=== PATIENT | male | born 1945 | race Caucasian/White ===

== ENCOUNTER 2018-06-17 13:52 | Emergency (ER) | payer OTHER ==
--- NOTE | 2018-06-17 14:56 | ER Report ---
History and Physical Time Seen By MD: 14:56 Hx. of Stated Complaint: left lower quadrant pain HPI/ROS CHIEF COMPLAINT: LLQ abdominal pain HISTORY OF PRESENT ILLNESS: The patient is a 72-year-old male with past medical history for high blood pressure and gout who states that approximately 4-5 days ago began with a bloating sensation to his abdomen with some mild discomfort and over the past 4-5 days the pain is migrated to the left lower quadrant it waxes and wanes in intensity from 5 out of 10-9 out of 10 and is said most severe when someone is pushing on it. He nausea vomiting, denies any fevers or chills. Denies similar episodes in the past. He denies any blood or mucus in his stool his last bowel movement was today and was reported to be "normal". He denies dysuria. Denies any blood in his urine. He denies chest pain or shortness of breath. REVIEW OF SYSTEMS: Constitutional: No fever, no chills. Eyes: No discharge. ENT: No sore throat. Cardiovascular: No chest pain, no palpitations. Respiratory: No cough, no shortness of breath. Gastrointestinal: Left lower quadrant abdominal pain, no nausea vomiting no diarrhea no constipation Genitourinary: No hematuria. Musculoskeletal: No back pain. Skin: No rashes. Neurological: No headache. Allergies: Coded Allergies: No Known Drug Allergies (Unverified , 06/17/18) Home Meds Active Scripts Hydrocodone Bit/Acetaminophen (HYDROCODON-ACETAMINOPHEN 5-325) 1 Each Tablet, 1 EACH PO Q4H PRN for PAIN, #12 TAB 0 Refills TAKE ONE TABLET BY MOUTH EVERY 4-6 HOURS NEEDED FOR PAIN Prov:TAMIKO LACY MD 06/17/18 Metronidazole (FLAGYL) 500 Mg Tablet, 500 MG PO BID for 10 Days, #20 TAB 0 Refills Prov:TAMIKO LACY MD 06/17/18 Ciprofloxacin Hcl 500 Mg Tab (CIPRO 500 MG TAB) 500 Mg Tablet, 500 MG PO BID, #20 TAB 0 Refills Prov:TAMIKO LACY MD 06/17/18 Reported Medications Indomethacin (INDOCIN) 25 Mg/5 Ml Oral.susp, 25 MG PO 06/17/18 Tamsulosin Hcl (FLOMAX) 0.4 Mg Cap.er.24h, 0.4 MG PO, CAP 06/17/18 Sildenafil Citrate (SILDENAFIL) 20 Mg Tablet, 20 MG PO TID 06/17/18 Hydrochlorothiazide (HYDROCHLOROTHIAZIDE) 25 Mg Tablet, 1 TAB PO QDAY, TAB 06/17/18 Lisinopril (LISINOPRIL) 40 Mg Tablet, 40 MG PO QDAY, TAB 06/17/18 Past Medical/Surgical History Hypertension, gout Constitutional Vital Sign - Last 24 Hours 06/17/18 06/17/18 06/17/18 06/17/18 14:00 14:06 14:30 15:00 Temp 99.6 Pulse 63 104 67 95 Resp 16 B/P (MAP) 103/59 (74) 169/103 102/62 (75) 170/110 (130) Pulse Ox 95 91 94 91 O2 Delivery Room Air 06/17/18 06/17/18 06/17/18 06/17/18 15:30 16:00 16:30 17:30 Pulse 82 89 90 B/P (MAP) 173/102 (125) 164/89 (114) 159/90 (113) 176/107 (130) Pulse Ox 93 92 93 92 Physical Exam General Appearance: The patient is alert, has no immediate need for airway protection and no signs of toxicity. Eyes: Pupils equal and round no pallor or injection. ENT, Mouth: Mucous membranes are moist. Respiratory: There are no retractions, lungs are clear to auscultation. Cardiovascular: Regular rate and rhythm. Gastrointestinal: Abdomen is somewhat protuberant with left lower quadrant pain to palpation Neurological: Awake and alert Skin: Warm and dry, no rashes. Musculoskeletal: Neck is supple non tender. Extremities are nontender, nonswollen and have full range of motion. Medical Decision Making Data Points Result Diagram: 06/17/18 1409 06/17/18 1510 Laboratory Hematology Test 06/17/18 14:09 06/17/18 14:51 06/17/18 15:10 Red Blood Count 5.40 M/uL (4.00-5.60) Mean Corpuscular Volume 85.5 fL (80.0-96.0) Mean Corpuscular Hemoglobin 29.6 pg (26.0-33.0) Mean Corpuscular Hemoglobin Concent 34.6 g/dL (32.0-36.0) Red Cell Distribution Width 14.0 % (11.5-14.5) Mean Platelet Volume 7.3 fL (7.2-11.1) Neutrophils (%) (Auto) 62.0 % (39.4-72.5) Lymphocytes (%) (Auto) 24.7 % (17.6-49.6) Monocytes (%) (Auto) 8.7 % (4.1-12.4) Eosinophils (%) (Auto) 4.0 % (0.4-6.7) Basophils (%) (Auto) 0.6 % (0.3-1.4) Nucleated RBC Relative Count (auto) 0.0 /100WBC Neutrophils # (Auto) 4.0 K/uL (2.0-7.4) Lymphocytes # (Auto) 1.6 K/uL (1.3-3.6) Monocytes # (Auto) 0.6 K/uL (0.3-1.0) Eosinophils # (Auto) 0.3 K/uL (0.0-0.5) Basophils # (Auto) 0.0 K/uL (0.0-0.1) Nucleated RBC Absolute Count (auto) 0.00 K/uL Urine Color Yellow Urine Clarity Clear Urine pH 6.0 pH (4.8-9.5) Urine Specific Floral 1.010 Urine Protein Negative mg/dL (NEGATIVE) Urine Glucose (UA) Negative mg/dL (NEGATIVE) Urine Ketones Negative mg/dL (NEGATIVE) Urine Blood Negative (NEGATIVE) Urine Nitrite Negative (NEGATIVE) Urine Bilirubin Negative (NEGATIVE) Urine Urobilinogen Negative mg/dL (0.2-1.9) Urine Leukocyte Esterase Negative (NEGATIVE) Urine RBC <1 /HPF (0-2/HPF) Urine WBC <1 /HPF (0-5/HPF) Urine Squamous Epithelial Cells Few /LPF (</=FEW) Urine Bacteria Negative /HPF (NONE-FEW) Urine Mucus None /HPF (NONE-FEW) Sodium Level 139 mmol/L (137-145) Potassium Level 3.8 mmol/L (3.5-5.0) Chloride Level 103 mmol/L (98-107) Carbon Dioxide Level 26 mmol/L (22-30) Blood Urea Nitrogen 13 mg/dl (9-21) Creatinine 1.00 mg/dl (0.66-1.25) Glomerular Filtration Rate Calc > 60.0 Random Glucose 100 mg/dl (75-110) Calcium Level 9.5 mg/dl (8.4-10.2) Total Bilirubin 0.4 mg/dl (0.2-1.3) Aspartate Amino Transf (AST/SGOT) 28 U/L (0-35) Alanine Aminotransferase (ALT/SGPT) 43 U/L (0-56) Alkaline Phosphatase 86 U/L (0-126) Total Protein 7.8 g/dl (6.3-8.2) Albumin 4.5 g/dl (3.5-5.0) Lipase 95 U/L (23-300) Chemistry Test 06/17/18 14:09 06/17/18 14:51 06/17/18 15:10 White Blood Count 6.4 k/uL (4.5-11.0) Red Blood Count 5.40 M/uL (4.00-5.60) Hemoglobin 16.0 g/dL (14.0-18.0) Hematocrit 46.1 % (42.0-52.0) Mean Corpuscular Volume 85.5 fL (80.0-96.0) Mean Corpuscular Hemoglobin 29.6 pg (26.0-33.0) Mean Corpuscular Hemoglobin Concent 34.6 g/dL (32.0-36.0) Red Cell Distribution Width 14.0 % (11.5-14.5) Platelet Count 296 K/uL (150-450) Mean Platelet Volume 7.3 fL (7.2-11.1) Neutrophils (%) (Auto) 62.0 % (39.4-72.5) Lymphocytes (%) (Auto) 24.7 % (17.6-49.6) Monocytes (%) (Auto) 8.7 % (4.1-12.4) Eosinophils (%) (Auto) 4.0 % (0.4-6.7) Basophils (%) (Auto) 0.6 % (0.3-1.4) Nucleated RBC Relative Count (auto) 0.0 /100WBC Neutrophils # (Auto) 4.0 K/uL (2.0-7.4) Lymphocytes # (Auto) 1.6 K/uL (1.3-3.6) Monocytes # (Auto) 0.6 K/uL (0.3-1.0) Eosinophils # (Auto) 0.3 K/uL (0.0-0.5) Basophils # (Auto) 0.0 K/uL (0.0-0.1) Nucleated RBC Absolute Count (auto) 0.00 K/uL Urine Color Yellow Urine Clarity Clear Urine pH 6.0 pH (4.8-9.5) Urine Specific Floral 1.010 Urine Protein Negative mg/dL (NEGATIVE) Urine Glucose (UA) Negative mg/dL (NEGATIVE) Urine Ketones Negative mg/dL (NEGATIVE) Urine Blood Negative (NEGATIVE) Urine Nitrite Negative (NEGATIVE) Urine Bilirubin Negative (NEGATIVE) Urine Urobilinogen Negative mg/dL (0.2-1.9) Urine Leukocyte Esterase Negative (NEGATIVE) Urine RBC <1 /HPF (0-2/HPF) Urine WBC <1 /HPF (0-5/HPF) Urine Squamous Epithelial Cells Few /LPF (</=FEW) Urine Bacteria Negative /HPF (NONE-FEW) Urine Mucus None /HPF (NONE-FEW) Glomerular Filtration Rate Calc > 60.0 Calcium Level 9.5 mg/dl (8.4-10.2) Total Bilirubin 0.4 mg/dl (0.2-1.3) Aspartate Amino Transf (AST/SGOT) 28 U/L (0-35) Alanine Aminotransferase (ALT/SGPT) 43 U/L (0-56) Alkaline Phosphatase 86 U/L (0-126) Total Protein 7.8 g/dl (6.3-8.2) Albumin 4.5 g/dl (3.5-5.0) Lipase 95 U/L (23-300) Urinalysis Test 06/17/18 14:51 Urine Color Yellow Urine Clarity Clear Urine pH 6.0 pH (4.8-9.5) Urine Specific Floral 1.010 Urine Protein Negative mg/dL (NEGATIVE) Urine Glucose (UA) Negative mg/dL (NEGATIVE) Urine Ketones Negative mg/dL (NEGATIVE) Urine Blood Negative (NEGATIVE) Urine Nitrite Negative (NEGATIVE) Urine Bilirubin Negative (NEGATIVE) Urine Urobilinogen Negative mg/dL (0.2-1.9) Urine Leukocyte Esterase Negative (NEGATIVE) Urine RBC <1 /HPF (0-2/HPF) Urine WBC <1 /HPF (0-5/HPF) Urine Squamous Epithelial Cells Few /LPF (</=FEW) Urine Bacteria Negative /HPF (NONE-FEW) Urine Mucus None /HPF (NONE-FEW) EKG/Imaging Imaging FACILITY: [facility] [place] PATIENT NAME: Bakari Case : 1945 MR: [id number] V: [id number] EXAM DATE: ORDERING PHYSICIAN: TAMIKO LACY TECHNOLOGIST: Location: [facility] [place] Patient: Bakari Case : 1945 Visit/Account:[id number] Date of Sevice: 06/17/2018 CT ABDOMEN PELVIS W/ CON HISTORY: LLQ pain TECHNIQUE: Following administration of IV contrast contiguous axial images acquired through the abdomen/pelvis. Coronal and sagittal reformatting also performed.Dose Lowering Technique One of the following dose optimization techniques was utilized in the perform ance of this exam: Automated exposure control; adjustment of the mA and/or kV according to the patient's size; or use of an iterative reconstruction technique. Specific details can be referenced in the facility's radiology CT exam operational policy. CONTRAST: 75 mL Isovue-370 COMPARISON: None. FINDINGS: Visualized lung bases: There is a 5 mm noncalcified nodule posterior aspect of the left lower lobe best seen on image 11 of series 3 Hepatobiliary: There appears to been partial resection of the left lobe of the liver Spleen: Negative. Adrenals: There is a 9 x 5 mm right adrenal nodule Pancreas: Negative. Kidneys ureters or bladder: Urinary bladder is mildly distended. There is mild thickening of the bladder wall. Genitalia: Prostate gland is moderately enlarged impinging upon the floor the bladder GI: There is mild diverticulosis of the left-sided colon there are minimal infiltrative changes seen in the pericolonic fat adjacent to proximal sigmoid colon . This could represent very subtle diverticulitis given the clinical history of left lower quadrant pain Vessels/spaces/nodes: Negative. Bones/soft tissues: There is a small umbilical hernia containing fat. There are spondylotic changes in the thoracolumbar spine. Additional findings: None pertinent. IMPRESSION: There is a 5 mm noncalcified nodule posterior aspect left lower lobe [employer]LE[employer] SOC[employer] FOLLOW-UP GUIDELINES FOR NEWLY DETECTED INCIDENTAL NODULES IN PERSONS 35 YEARS OF AGE OR OLDER. *These recommendations do NOT apply to lung cancer screening, patients with immunosuppression or patients with a known primary malignancy. SOLITARY SOLID NODULE If nodule size is < 6 mm: * Low risk patient ? No routine follow-up. * High risk patient ? Optional CT at 12 months. If nodule size is 6-8 mm: * Low risk patient ? CT at 6-12 months, then consider CT at 18-24 months if no change. * High risk patient ? CT at 6-12 months, then CT at 18-24 months if no change. If nodule size is > 8 mm: * Low risk patient ? Consider CT at 3, 9 and 24 months (if no change), PET/CT, tissue sampling or a combination thereof. * High risk patient ? Consider CT at 3, 9 and 24 months (if no change), PET/CT, tissue sampling, or a combination thereof. LOW RISK PATIENT: Minimal or absent history of tobacco use and of other known risk factors. HIGH RISK PATIENT: Tobacco use, family history of lung cancer, upper pulmonary lobe location of nodule, presence of emphysema, pulmonary fibrosis, older age. Srinath H, Gonzalo DP, Anna JM, et al. Guidelines for Management of Incidental Pulmonary Nodules Detected on CT Images: From the Fleischner Society 2017. Radiology. [facility] There appears to been partial resection of the left lobe the liver 9 x 5 mm right adrenal nodule Urinary bladder is mildly thickened and mildly distended. The prostate gland is moderately enlarged impinging upon the floor the bladder There is mild diverticulosis of the left side of the colon. There are minimal infiltrative changes seen in the pericolonic fat adjacent to the proximal sigmoid colon. This could represent very subtle diverticulitis given the clinical history of left lower quadrant pain Small umbilical hernia containing fat Report Dictated By: Shantel Horta MD at 06/17/2018 4:56 PM Report E-Signed By: Sanjay Horta MD at 06/17/2018 5:04 PM WSN:[email or web address] ED Course/Re-evaluation ED Course DT scan is consistent with possible early sigmoid diverticulitis. Plan at this time will be oral pain medication along with oral antibiotics and close follow- up. Decision to Disposition Date: Jun 17, 2018 Decision to Disposition Time: 17:17 Depart Departure Latest Vital Signs Vital Signs Date Time Temp Pulse Resp B/P (MAP) Pulse Ox O2 Delivery O2 Flow Rate FiO2 06/17/18 17:30 90 176/107 (130) 92 06/17/18 14:06 99.6 16 Room Air Impression: Primary Impression: Sigmoid diverticulitis Condition: Improved Disposition: HOME OR SELF-CARE New Scripts Hydrocodone Bit/Acetaminophen (HYDROCODON-ACETAMINOPHEN 5-325) 1 Each Tablet 1 EACH PO Q4H PRN for PAIN, #12 TAB 0 Refills TAKE ONE TABLET BY MOUTH EVERY 4-6 HOURS NEEDED FOR PAIN Prov: TAMIKO LACY MD 06/17/18 Metronidazole (FLAGYL) 500 Mg Tablet 500 MG PO BID for 10 Days, #20 TAB 0 Refills Prov: TAMIKO LACY MD 06/17/18 Ciprofloxacin Hcl 500 Mg Tab (CIPRO 500 MG TAB) 500 Mg Tablet 500 MG PO BID, #20 TAB 0 Refills Prov: TAMIKO LACY MD 06/17/18 Patient Instructions: Diverticulitis (ED) TAMIKO LACY MD Jun 17, 2018 14:56
[2018-06-17 15:25] LABS: PLATELET COUNT, AUTOMATED 296 K/uL (150-450)
--- NOTE | 2018-06-17 17:08 | RADIOLOGY IMAGING REPORT ---
FACILITY: [facility] PATIENT NAME: Bakari Case : 1945 MR: [id number] V: [id number] EXAM DATE: ORDERING PHYSICIAN: TAMIKO LACY TECHNOLOGIST: Location: [facility] Patient: Bakari Case : 1945 Visit/Account:[id number] Date of Sevice: 06/17/2018 CT ABDOMEN PELVIS W/ CON HISTORY: LLQ pain TECHNIQUE: Following administration of IV contrast contiguous axial images acquired through the abdom en/pelvis. Coronal and sagittal reformatting also performed.Dose Lowering Technique One of the following dose optimization techniques was utilized in the performance of this exam: Autom ated exposure control; adjustment of the mA and/or kV according to the patient's size; or use of an i terative reconstruction technique. Specific details can be referenced in the facility's radiology C T exam operational policy. CONTRAST: 75 mL Isovue-370 COMPARISON: None. FINDINGS: Visualized lung bases: There is a 5 mm noncalcified nodule posterior aspect of the left lower lobe b est seen on image 11 of series 3 Hepatobiliary: There appears to been partial resection of the left lobe of the liver Spleen: Negative. Adrenals: There is a 9 x 5 mm right adrenal nodule Pancreas: Negative. Kidneys ureters or bladder: Urinary bladder is mildly distended. There is mild thickening of the arielle dder wall. Genitalia: Prostate gland is moderately enlarged impinging upon the floor the bladder GI: There is mild diverticulosis of the left-sided colon there are minimal infiltrative changes seen in the pericolonic fat adjacent to proximal sigmoid colon . This could represent very subtle diver ticulitis given the clinical history of left lower quadrant pain Vessels/spaces/nodes: Negative. Bones/soft tissues: There is a small umbilical hernia containing fat. There are spondylotic changes in the thoracolumbar spine. Additional findings: None pertinent. IMPRESSION: There is a 5 mm noncalcified nodule posterior aspect left lower lobe [employer]LE[employer] SOC[employer] FOLLOW-UP GUIDELINES FOR NEWLY DETECTED INCIDENTAL NODULES IN PERSONS 35 YEARS OF AGE OR OLDER. *These recommendations do NOT apply to lung cancer screening, patients with immunosuppression or pham ents with a known primary malignancy. SOLITARY SOLID NODULE If nodule size is < 6 mm: * Low risk patient ? No routine follow-up. * High risk patient ? Optional CT at 12 months. If nodule size is 6-8 mm: * Low risk patient ? CT at 6-12 months, then consider CT at 18-24 months if no change. * High risk patient ? CT at 6-12 months, then CT at 18-24 months if no change. If nodule size is > 8 mm: * Low risk patient ? Consider CT at 3, 9 and 24 months (if no change), PET/CT, tissue sampling or a combination thereof. * High risk patient ? Consider CT at 3, 9 and 24 months (if no change), PET/CT, tissue sampling, or a combination thereof. LOW RISK PATIENT: Minimal or absent history of tobacco use and of other known risk factors. HIGH RISK PATIENT: Tobacco use, family history of lung cancer, upper pulmonary lobe location of nodul e, presence of emphysema, pulmonary fibrosis, older age. Srinath H, Gonzalo DP, Seano JM, et al. Guidelines for Management of Incidental Pulmonary Nodules Dete cted on CT Images: From the Fleischner Society 2017. Radiology. [facility] There appears to been partial resection of the left lobe the liver 9 x 5 mm right adrenal nodule Urinary bladder is mildly thickened and mildly distended. The prostate gland is moderately enlarged impinging upon the floor the bladder There is mild diverticulosis of the left side of the colon. There are minimal infiltrative changes s een in the pericolonic fat adjacent to the proximal sigmoid colon. This could represent very subtle diverticulitis given the clinical history of left lower quadrant pain Small umbilical hernia containing fat Report Dictated By: Shantel Horta MD at 06/17/2018 4:56 PM Report E-Signed By: Sanjay Horta MD at 06/17/2018 5:04 PM WSN:[email or web address]
[2018-06-17] MEDS ORDERED: LOR5/325 PO (17:20)
[2018-06-17] MEDS ORDERED: METR-1 PO (17:20)
[2018-06-17] MEDS ORDERED: CIPR-344 PO (17:20)
[2018-06-17 17:30] VITALS: BP 176/107
[2018-06-17] MEDS ORDERED: HYDR-2966 PO (17:37)
[2018-06-17] MEDS ORDERED: LISI-374 PO (17:37)
[2018-06-17] MEDS ORDERED: INDO25OR3 PO (17:37)
[2018-06-17] MEDS ORDERED: SILD20TA PO (17:37)
[2018-06-17] MEDS ORDERED: TAMS0.4C25 PO (17:37)
== END 2018-06-17 17:45 | disposition home or self-care (01) ==
LOC: ER 15:05
DX: K57.32 Diverticulitis of large intestine without perforation or abscess without bleeding (principal)
CPT/HCPCS: 74177; 81001; 82040; 82247; 82310; 82374; 82435; 82565; 82947; 83690; 84075; 84132; 84155; 84295; 84450; 84460; 84520; 85025; 99284; Q9967